=== PATIENT | male | born 1960 | race Two or more races ===

== ENCOUNTER 2025-02-12 20:00 | Emergency (ER) | payer OTHER ==
[~2025-02-12] VITALS: Ht 182.9 cm; Wt 93.0 kg
[2025-02-12] MEDS ORDERED: GENTAMICIN SULFATE 0.15 MG/DR DROPS 5ML OP STA (21:19)
[2025-02-12] MEDS ORDERED: TETRACAINE HCL 20 DR/ML DROPS OP STA (21:23)
[2025-02-12] MEDS ORDERED: GENTAMICIN SULFATE 0.15 MG/DR DROPS 5ML OP ONE (21:29)
== END 2025-02-12 21:47 | disposition home or self-care (01) ==
LOC: ER 20:01
DX: T15.92XA Foreign body on external eye, part unspecified, left eye, initial encounter (principal); Y92.89 Other specified places as the place of occurrence of the external cause